=== PATIENT | female | born 2005 | race Two or more races ===

== ENCOUNTER 2025-08-15 20:03 | Emergency (ER) | payer MEDICAID ==
[~2025-08-15] VITALS: Ht 152.4 cm; Wt 58.3 kg
--- NOTE | 2025-08-15 20:42 | ED.PDOC ---
History of Present Illness HPI Comments 20 y/o F, with a history of asthma, presents with c/c of headache and blurry vision. Patient endorses on 3x day history of intermittent headaches. Blurry vision is limited to the left eye. Additional associated symptom of nausea. Pain is a 6/10 in severity. Denies any vomiting, speech changes, lightheadedness, among others. Chief Complaint: Headache Time Seen by MD: 20:12 Reviewed Notes: Nurses Notes, Medications, Allergies Allergies: Coded Allergies: No Known Drug Allergy (Verified Allergy, Unknown, 08/15/25) Home Meds Active Scripts Sumatriptan Succinate (Sumatriptan Succinate) 25 Mg Tab, 25 MG PO DAILY PRN for 3 Days, #6 TAB Take one tab by mouth onset of headache. May repeat one tab 1-2 hours after if headache persist. 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 Social History Smoker: Other (nicotine vape ) Alcohol: Denies ETOH Use Drugs: Marijuana Lives In: Home All Other Systems: Reviewed and Negative (As per HPI) Physical Exam General Appearance: No Apparent Distress, Normal HEENT: Normal ENT Inspection, Pharynx Normal, TMs Normal Neck: Full Range of Motion, Non-Tender, Normal, Normal Inspection Respiratory: Chest Non-Tender, Lungs Clear, No Accessory Muscle Use, No Respiratory Distress, Normal Breath Sounds Cardiovascular: No Edema, No JVD, No Murmur, No Gallop, Normal Peripheral Pulses, Regular Rate/Rhythm Breast Exam: Deferred Gastrointestinal: No Organomegaly, Non Tender, No Pulsatile Mass, Normal Bowel Sounds, Soft Genitalia: Deferred Pelvic: Deferred Rectal: Deferred Extremities: No calf tenderness, Normal capillary refill, Normal inspection, Normal range of motion, Non-tender, No pedal edema Musculoskeletal : Apperance: Normal Neurologic: 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 Was a procedure done?: No Differential Dx Considerations may include: migraines, tension headaches, aneurysm, intracranial hemorrhaging, CVA, TIA, among others X-Ray, Labs, Meds, VS Vital Signs Date Time Temp Pulse Resp B/P (MAP) Pulse Ox O2 Delivery O2 Flow Rate FiO2 08/15/25 22:17 98.1 73 19 111/72 (85) 98 98.1 08/15/25 22:17 73 19 98 Room Air 08/15/25 20:05 97.9 66 16 110/71 100 97.9 Current Medications Medications (Trade) Dose Ordered Sig/Yao Route Start Time Stop Time Status Last Admin Ketorolac Tromethamine (Toradol Injection) 60 mg ONCE ONCE IM 08/15/25 22:15 08/15/25 22:16 DC 08/15/25 22:18 Ondansetron HCl (Zofran Po) 4 mg ONCE ONCE PO 08/15/25 22:15 08/15/25 22:16 DC 08/15/25 22:17 Dexamethasone Sodium Phosphate (Decadron Injection) 10 mg ONCE ONCE IM 08/15/25 22:15 08/15/25 22:16 DC 08/15/25 22:17 X-Ray, Labs, Meds, VS Comment Patient was given Toradol Decadron and Zofran reports improvement in pain requesting discharge at this time. Script trial of sumatriptan advised to take medication as prescribed side effects discussed. Advised to rest increase p.o. fluids with electrolytes follow up with your PCP in 2-3 days as necessary ER return precautions given patient indicates understanding agrees with discharge plan of care. Time of 1ST Reevaluation: 20:25 Reevaluation 1ST: Unchanged Time of 2ND Reevaluation: 23:00 Reevaluation 2ND: Improved Patient Education/Counseling: Diagnosis, Treatment, Need For Follow Up Family Education/Counseling: No Family Present SEPSIS Sepsis Screen Date sepsis recognized/suspect: Aug 15, 2025 Time Sepsis recognized/suspect: 2006 Recent Procedure: No On Antibiotic Therapy: No Respiratory Rate >20: No Heart Rate >90: No Temp<36 C (96.8 F) or >38.3 C: No SBP <90 or MAP <65 mmHG: No New Acute Mental Status Change: No Is the patient on CPAP, BIPAP,: No Vital Signs Date Time Temp Pulse Resp B/P (MAP) Pulse Ox O2 Delivery O2 Flow Rate FiO2 08/15/25 22:17 98.1 73 19 111/72 (85) 98 98.1 08/15/25 22:17 73 19 98 Room Air 08/15/25 20:05 97.9 66 16 110/71 100 97.9 Medications Medications Dose Ordered Sig/Yao Route Start Time Stop Time Status Last Admin Dose Admin Dexamethasone Sodium Phosphate 10 mg ONCE ONCE IM 08/15/25 22:15 08/15/25 22:16 DC 08/15/25 22:17 Ketorolac Tromethamine 60 mg ONCE ONCE IM 08/15/25 22:15 08/15/25 22:16 DC 08/15/25 22:18 Ondansetron HCl 4 mg ONCE ONCE PO 08/15/25 22:15 08/15/25 22:16 DC 08/15/25 22:17 Departure 1 Departure Time of Disposition: 23:04 Impression: Primary Impression: Headache Qualified Codes: R51.9 - Headache, unspecified Disposition: HOME / SELF CARE / HOMELESS Condition: Stable e-Prescriptions Sumatriptan Succinate (Sumatriptan Succinate) 25 Mg Tab 25 MG PO DAILY PRN for 3 Days, #6 TAB Take one tab by mouth onset of headache. May repeat one tab 1-2 hours after if headache persist. Prov: RASHID BREWSTER 08/15/25 Discharged With: Self Critical Care Note Critical Care Time?: No Stability Stability form required: No Heart Score Heart Score: Heart Score Response (Comments) Value History N/A 0 EKG N/A 0 Age N/A 0 Risk Factors N/A 0 Troponin N/A 0 Total 0 I personally scribed for ER ([email or web address]) on 08/15/25 at 20:42. Electronically submitted by Efra Ho ([email or web address]). ER Aug 15, 2025 20:42 NEYRASHID Barcenas [facility] Aug 15, 2025 22:01
[2025-08-15 22:17] VITALS: BP 111/72; PULSE 73; RESP 19; TEMP 98.1; O2SAT 98
[2025-08-15] MEDS: ONDANSETRON ODT 4 MG TAB PO ONE (22:17)
[2025-08-15] MEDS: KETOROLAC TROMETH 60MG/2ML VIAL IM ONE (22:18)
[2025-08-15] MEDS ORDERED: SUMA25TA2 PO (23:06)
== END 2025-08-15 23:16 | disposition home or self-care (01) ==
LOC: ER 20:03
DX: R51.9 Headache, unspecified (principal); F12.90 Cannabis use, unspecified, uncomplicated; F17.290 Nicotine dependence, other tobacco product, uncomplicated; Z79.899 Other long term (current) drug therapy
CPT/HCPCS: 96372; 99284; J1100; J1885; Q0162